=== PATIENT | male | born 2000 | race Caucasian/White ===

== ENCOUNTER 2022-06-14 00:19 | Inpatient (IN) | payer OTHER ==
[~2022-06-14] VITALS: Ht 188 cm; Wt 131.6 kg
[2022-06-14] VITALS (21 sets, daily range): BP systolic 109–154; BP diastolic 56–125
[2022-06-14] MEDS ORDERED: ACETAMINOPHEN 325MG TABLET PO STA (00:46)
[2022-06-14] MEDS ORDERED: SODIUM CHLORIDE 0.9% 1,000 ML IV ONE ×2 (01:00)
[2022-06-14] MEDS ORDERED: IBUPROFEN 400MG TABLET PO ONE (01:00)
[2022-06-14] MEDS ORDERED: CEFTRIAXONE 1 G PREMIX 50 ML IV ONE (01:00)
[2022-06-14] MEDS ORDERED: VANCOMYCIN 1G PREMIX 200 ML IV ONE (01:00)
[2022-06-14 01:30] LABS: CHLORIDE 87 mEq/L (98-107)
[2022-06-14 01:37] LABS: HEMATOCRIT. 44.5 % (42.0-52.0); HEMOGLOBIN. 15.5 g/dL (14.0-18.0); MEAN CORPUSCULAR HEMOGLOBIN 28.6 pg (28.0-32.0); MEAN CORPUSCULAR VOLUME 82.1 fL (80.0-94.0); MEAN PLATELET VOLUME 8.8 fl (7.4-10.4); PLATELET 258 x1000/uL (130-400); RED BLOOD CELL COUNT 5.42 mill/uL (4.7-6.1); RED CELL DISTRIBUTION WIDTH 13.2 % (11.6-14.6)
[2022-06-14 01:56] LABS: INR 1.9; PROTHROMBIN TIME 19.8 sec (9.6-11.0)
[2022-06-14] MEDS ORDERED: DANTROLENE SODIUM 25MG CAPSULE PO NR (02:30)
[2022-06-14] MEDS ORDERED: DEXT 5% WATER + KCL 40MEQ/L 1,000 ML IV NR (02:30)
[2022-06-14] MEDS: POTASSIUM CHLORIDE INJ 40 MEQ in DEXTROSE 5% WATER 1,000 ML IV NR ×2 (02:45→14:52)
[2022-06-14] MEDS ORDERED: SODIUM CHLORIDE 0.9% 1,000 ML IV NR (02:45)
[2022-06-14 03:19] LABS: CREATINE KINASE 343 IU/L (39-308)
[2022-06-14 05:34] LABS: CLARITY URINE CLOUDY (CLEAR); COLOR URINE DARK YELLOW (YELLOW); KETONES URINE 1+ (NEGATIVE); LEUKOCYTE ESTERASE URINE TRACE (NEGATIVE); NITRITE URINE NEGATIVE (NEGATIVE); OCCULT BLOOD URINE 3+ (NEGATIVE); PH URINE 5.5 (4.5-8.0); PROTEIN URINE 3+ (NEGATIVE); SPECIFIC GRAVITY URINE 1.027 (1.005-1.030)
[2022-06-14 05:48] LABS: *AMPHETAMINES SCREEN URINE NEGATIVE (NEGATIVE); *BARBITURATES SCREEN URINE NEGATIVE (NEGATIVE); *BENZODIAZEPINES SCREEN URINE NEGATIVE (NEGATIVE); *COCAINE SCREEN URINE NEGATIVE (NEGATIVE); CANNABINOID URINE SCREEN NEGATIVE (NEGATIVE); METHADONE URINE SCREEN NEGATIVE (NEGATIVE); OPIATES URINE SCREEN NEGATIVE (NEGATIVE); PHENCYCLIDINE URINE SCREEN NEGATIVE (NEGATIVE)
[2022-06-14] MEDS ORDERED: ACETAMINOPHEN 325MG TABLET PO PRN (06:15)
[2022-06-14] MEDS ORDERED: PIPERACILLIN/TAZ 3.375G PREMIX 50 ML IV SCH (06:15)
[2022-06-14] MEDS ORDERED: LORAZEPAM 2MG/ML CPJ IV PRN ×2 (06:15→21:30)
[2022-06-14] MEDS ORDERED: CLONIDINE 0.1MG TABLET PO PRN (06:15)
[2022-06-14 07:06] LABS: PLATELET ESTIMATE NORMAL
[2022-06-14 07:12] LABS: BG BASE EXCESS -3.2 mmol/L (-2.0-2.0); BG CARBOXYHEMOGLOBIN 0.5 % (0.5-1.5); BG DEOXYHEMOGLOBIN 5.1 % (0.0-5.0); BG FRACTION INSPIRED OXYGEN 21; BG HCO3 ACT 20.2 mmol/L (22.0-26.0); BG METHEMOGLOBIN 0.4 % (0.0-1.5); BG OXYGEN SATURATION 94.9 % (92.0-98.5); BG PH 7.418 (7.350-7.450); BG PO2 71.1 mmHg (75.0-100.0); BG SAMPLE SITE RIGHT RADIAL; BG VENT MODE ROOM AIR
[2022-06-14] MEDS ORDERED: VANCOMYCIN 1G PREMIX 200 ML IV SCH (09:15)
[2022-06-14] MEDS ORDERED: VANCOMYCIN 1.25GM PMX (XELLIA) 250 ML IV SCH (10:00)
[2022-06-14] MEDS ORDERED: FOLIC ACID 1 MG, THIAMINE HCL 100 MG, MVI, ADULT NO.1 10 ML in DEXT 5%/0.9% NACL 1,000 ML IV SCH ×4 (10:00)
[2022-06-14] MEDS ORDERED: LACTATED RINGERS 1,000 ML IV SCH (11:14)
[2022-06-14] MEDS: ENOXAPARIN 40MG/0.4ML SYR SUBCUT SCH (11:49)
[2022-06-14] MEDS: ACETAMINOPHEN 325MG TABLET PO PRN (11:50)
[2022-06-14] MEDS: ACETAMINOPHEN 650MG SUPP PR PRN ×2 (12:25→20:45)
[2022-06-14] MEDS ORDERED: IPRATROPIUM/ALBUTEROL 0.5-3(2.5)MG/3ML NEB HHN PRN ×2 (13:00→15:15)
[2022-06-14 13:03] LABS: T4 FREE 1.28 ng/dL (0.76-1.46)
[2022-06-14] MEDS ORDERED: ALBUTEROL (0.083%) 2.5MG/3ML NEB HHN PRN (13:15)
[2022-06-14] MEDS ORDERED: IPRATROPIUM BROMIDE (0.02%) 0.5MG/2.5ML NEB HHN PRN (13:15)
[2022-06-14 13:50] LABS: BG CARBOXYHEMOGLOBIN 0.6 % (0.5-1.5); BG DEOXYHEMOGLOBIN 1.6 % (0.0-5.0); BG FRACTION INSPIRED OXYGEN 36; BG HCO3 ACT 20.2 mmol/L (22.0-26.0); BG METHEMOGLOBIN 0.4 % (0.0-1.5); BG OXYGEN SATURATION 98.4 % (92.0-98.5); BG OXYHEMOGLOBIN 97.4 % (94.0-97.0); BG PCO2 31.4 mmHg (35.0-45.0); BG PH 7.427 (7.350-7.450); BG PO2 113.4 mmHg (75.0-100.0); BG SAMPLE SITE LEFT BRACHIAL; BG TOTAL HEMOGLOBIN 14.5 g/dL (12.0-18.0); BG VENT MODE NASAL CANNULA
[2022-06-14] MEDS: PIPERACILLIN/TAZOBACTAM 3.375 G in DEXTROSE 5% WATER 50 ML IV SCH ×2 (14:54→22:56)
[2022-06-14] MEDS ORDERED: LACTATED RINGERS 1,000 ML IV ONE (15:30)
[2022-06-14] MEDS ORDERED: IPRATROPIUM/ALBUTEROL 0.5-3(2.5)MG/3ML NEB HHN SCH ×2 (16:00)
[2022-06-14] MEDS ORDERED: IPRATROPIUM BROMIDE (0.02%) 0.5MG/2.5ML NEB HHN SCH (16:00)
[2022-06-14] MEDS ORDERED: ALBUTEROL (0.083%) 2.5MG/3ML NEB HHN SCH (16:00)
[2022-06-14 18:49] LABS: MEAN CORPUSCULAR HEMOGLOBIN 28.4 pg (28.0-32.0); MEAN CORPUSCULAR VOLUME 83.4 fL (80.0-94.0); MEAN PLATELET VOLUME 9.6 fl (7.4-10.4); PLATELET 178 x1000/uL (130-400); RED BLOOD CELL COUNT 4.92 mill/uL (4.7-6.1); RED CELL DISTRIBUTION WIDTH 13.2 % (11.6-14.6)
[2022-06-14 18:53] LABS: CHLORIDE 95 mEq/L (98-107)
[2022-06-14 19:04] LABS: CREATINE KINASE 548 IU/L (39-308); PHOSPHORUS 2.2 mg/dL (2.5-4.9)
[2022-06-14] MEDS: AZITHROMYCIN 500MG in DEXTROSE 5% WATER 250ML IV SCH (20:45)
[2022-06-14] MEDS: FAMOTIDINE 20MG TABLET PO SCH (21:00)
[2022-06-14] MEDS ORDERED: MAGNESIUM 4 G PREMIX 100 ML IV NR (21:30)
[2022-06-14] MEDS: VANCOMYCIN 1.25GM PMX (XELLIA) 250 ML IV SCH (22:30)
[2022-06-14] MEDS: IPRATROPIUM/ALBUTEROL 0.5-3(2.5)MG/3ML NEB HHN SCH (23:05)
[2022-06-14 23:36] LABS: BG BASE EXCESS -1.5 mmol/L (-2.0-2.0); BG FRACTION INSPIRED OXYGEN 32; BG METHEMOGLOBIN 0.5 % (0.0-1.5); BG OXYHEMOGLOBIN 97.5 % (94.0-97.0); BG PCO2 29.6 mmHg (35.0-45.0); BG PH 7.469 (7.350-7.450); BG PO2 98.8 mmHg (75.0-100.0); BG SAMPLE SITE RIGHT RADIAL; BG TOTAL HEMOGLOBIN 14.4 g/dL (12.0-18.0); BG VENT MODE NASAL CANNULA
[2022-06-14 23:38] LABS: PLATELET ESTIMATE NORMAL
[2022-06-15] VITALS (37 sets, daily range): BP systolic 61–147; BP diastolic 33–99
[2022-06-15] MEDS: ACETAMINOPHEN 650MG SUPP PR PRN ×3 (02:34→16:34)
[2022-06-15] MEDS: IPRATROPIUM/ALBUTEROL 0.5-3(2.5)MG/3ML NEB HHN SCH ×6 (04:05→23:40)
[2022-06-15] MEDS: PIPERACILLIN/TAZOBACTAM 3.375 G in DEXTROSE 5% WATER 50 ML IV SCH ×3 (06:03→23:01)
[2022-06-15 06:19] LABS: HEMATOCRIT. 39.1 % (42.0-52.0); HEMOGLOBIN. 13.4 g/dL (14.0-18.0); MEAN CORPUSCULAR HEMOGLOBIN 28.7 pg (28.0-32.0); MEAN CORPUSCULAR VOLUME 83.5 fL (80.0-94.0); MEAN PLATELET VOLUME 9.5 fl (7.4-10.4); PLATELET 145 x1000/uL (130-400); RED BLOOD CELL COUNT 4.68 mill/uL (4.7-6.1); RED CELL DISTRIBUTION WIDTH 13.4 % (11.6-14.6)
[2022-06-15 06:25] LABS: CHLORIDE 93 mEq/L (98-107)
[2022-06-15 06:33] LABS: CREATINE KINASE 499 IU/L (39-308)
[2022-06-15 08:00] LABS: HEPATITIS B SURFACE ANTIGEN NEGATIVE
[2022-06-15] MEDS ORDERED: AZITHROMYCIN 500MG/250ML 250 ML IV SCH (09:00)
[2022-06-15] MEDS: ENOXAPARIN 40MG/0.4ML SYR SUBCUT SCH (09:00)
[2022-06-15] MEDS: DEXT 5%/LACTATED RINGERS 1,000 ML IV SCH ×3 (09:40→23:02)
[2022-06-15] MEDS: VANCOMYCIN 1.25GM PMX (XELLIA) 250 ML IV SCH (09:40)
[2022-06-15] MEDS ORDERED: LIDOCAINE HCL 1% 10 MG/ML 10ML VIAL ONE (09:44)
[2022-06-15] MEDS ORDERED: MIDAZOLAM HCL 5 MG/5 ML VIAL IV NR (09:45)
[2022-06-15 09:54] LABS: PLATELET ESTIMATE NORMAL
[2022-06-15 10:35] LABS: SODIUM URINE RANDOM < 5 mEq/L
[2022-06-15] MEDS ORDERED: KCL 20MEQ/100ML X 2 FOR TOTAL KCL 40MEQ/200ML IV SCH (11:30)
[2022-06-15] MEDS ORDERED: POTASSIUM CHLORIDE INJ 40 MEQ in DEXT 5% WATER 250 ML IV ONE (11:30)
[2022-06-15] MEDS ORDERED: THIAMINE HCL 100MG TABLET NG SCH (11:45)
[2022-06-15] MEDS: FOLIC ACID 1MG TABLET PO SCH (14:22)
[2022-06-15] MEDS: ACETAMINOPHEN 325MG TABLET PO PRN (14:23)
[2022-06-15] MEDS: LORAZEPAM 2MG/ML CPJ IV SCH ×3 (14:24→23:01)
[2022-06-15] MEDS: AZITHROMYCIN 500MG in DEXTROSE 5% WATER 250ML IV SCH (16:37)
[2022-06-15] MEDS: VANCOMYCIN 1G PREMIX 200 ML IV SCH (17:53)
[2022-06-15] MEDS ORDERED: LORAZEPAM 2MG/ML CPJ IV NR (19:30)
[2022-06-15] MEDS: FAMOTIDINE 20MG TABLET PO SCH (21:41)
[2022-06-15] MEDS: THIAMINE HCL 500 MG in SODIUM CHLORIDE 0.9% 95 ML IV SCH (21:41)
[2022-06-16] VITALS (45 sets, daily range): BP systolic 81–157; BP diastolic 46–97
[2022-06-16] MEDS: ACETAMINOPHEN 325MG TABLET PO PRN (00:10)
[2022-06-16] MEDS: VANCOMYCIN 1G PREMIX 200 ML IV SCH (02:23)
[2022-06-16] MEDS: LORAZEPAM 2MG/ML CPJ IV SCH ×3 (02:24→11:28)
[2022-06-16] MEDS: IPRATROPIUM/ALBUTEROL 0.5-3(2.5)MG/3ML NEB HHN SCH ×5 (03:56→20:24)
[2022-06-16] MEDS: ACETAMINOPHEN 650MG SUPP PR PRN (05:04)
[2022-06-16] MEDS: PIPERACILLIN/TAZOBACTAM 3.375 G in DEXTROSE 5% WATER 50 ML IV SCH (05:54)
[2022-06-16 07:22] LABS: HEMATOCRIT. 40.8 % (42.0-52.0); HEMOGLOBIN. 13.6 g/dL (14.0-18.0); MEAN CORPUSCULAR HEMOGLOBIN 28.2 pg (28.0-32.0); MEAN CORPUSCULAR VOLUME 84.5 fL (80.0-94.0); MEAN PLATELET VOLUME 9.3 fl (7.4-10.4); PLATELET 59 x1000/uL (130-400); RED BLOOD CELL COUNT 4.83 mill/uL (4.7-6.1)
[2022-06-16] MEDS ORDERED: ENOXAPARIN 30MG/0.3ML SYR SUBCUT SCH (09:00)
[2022-06-16] MEDS ORDERED: POTASSIUM CHLORIDE 20MEQ TABLET SR PO NR (10:00)
[2022-06-16] MEDS ORDERED: PHYTONADIONE 10MG/ML AMP SUBCUT NR (10:30)
[2022-06-16 10:58] LABS: D-DIMER 6.41 mg/L FEU (<0.50); INR 1.3; PROTHROMBIN TIME 14.2 sec (9.6-11.0)
[2022-06-16 11:04] LABS: FIBRINOGEN > 900 mg/dL (200-400)
[2022-06-16] MEDS: FOLIC ACID 1MG TABLET PO SCH (11:28)
[2022-06-16] MEDS: THIAMINE HCL 500 MG in SODIUM CHLORIDE 0.9% 95 ML IV SCH ×3 (11:31→17:03)
[2022-06-16] MEDS: DEXT 5%/LACTATED RINGERS 1,000 ML IV SCH ×2 (11:31→17:02)
[2022-06-16] MEDS ORDERED: LORAZEPAM 2MG/ML CPJ IV PRN (13:00)
[2022-06-16 13:03] LABS: PLATELET ESTIMATE DECREASED
[2022-06-16] MEDS: ACYCLOVIR INJ 500 MG in DEXT 5% WATER 100 ML IV SCH ×2 (15:18→21:58)
[2022-06-16] MEDS: CEFEPIME 2,000 MG in DEXT 5% WATER 100 ML IV SCH (15:56)
[2022-06-16] MEDS: METRONIDAZOLE 250MG TABLET PO SCH ×2 (15:56→21:58)
[2022-06-16] MEDS: DOXYCYCLINE 100 MG in DEXT 5% WATER 100 ML IV SCH (15:56)
[2022-06-16] MEDS: HYDROCORTISONE SOD SUCCINATE 100 MG/2 ML VIAL IV SCH (21:58)
[2022-06-16] MEDS: FAMOTIDINE 20MG TABLET PO SCH (21:58)
[2022-06-16] MEDS ORDERED: LEVETIRACETAM 1,000 MG in SODIUM CHLORIDE 0.9% 100 ML IV NR (22:30)
[2022-06-16 23:34] LABS: CREATINE KINASE 1888 IU/L (39-308)
[2022-06-17] VITALS (62 sets, daily range): BP systolic 82–184; BP diastolic 38–117
[2022-06-17] MEDS: IPRATROPIUM/ALBUTEROL 0.5-3(2.5)MG/3ML NEB HHN SCH ×4 (00:25→21:12)
[2022-06-17] MEDS: LORAZEPAM 2MG/ML CPJ IV SCH ×6 (00:57→20:00)
[2022-06-17] MEDS: DEXT 5%/LACTATED RINGERS 1,000 ML IV SCH ×3 (00:57→22:48)
[2022-06-17] MEDS: HYDROCORTISONE SOD SUCCINATE 100 MG/2 ML VIAL IV SCH ×2 (05:21→15:11)
[2022-06-17] MEDS: METRONIDAZOLE 250MG TABLET PO SCH ×2 (05:21→15:12)
[2022-06-17] MEDS: DOXYCYCLINE 100 MG in DEXT 5% WATER 100 ML IV SCH ×2 (05:21→19:10)
[2022-06-17] MEDS: ACYCLOVIR INJ 500 MG in DEXT 5% WATER 100 ML IV SCH ×2 (05:21→15:11)
[2022-06-17 05:40] LABS: HEMATOCRIT. 37.9 % (42.0-52.0); HEMOGLOBIN. 12.5 g/dL (14.0-18.0); MEAN CORPUSCULAR HEMOGLOBIN 27.9 pg (28.0-32.0); MEAN CORPUSCULAR VOLUME 84.8 fL (80.0-94.0); MEAN PLATELET VOLUME 10.8 fl (7.4-10.4); RED BLOOD CELL COUNT 4.47 mill/uL (4.7-6.1); RED CELL DISTRIBUTION WIDTH 14.4 % (11.6-14.6)
[2022-06-17 05:56] LABS: PLATELET 33 x1000/uL (130-400)
[2022-06-17] MEDS: KCL 20MEQ/100ML PREMIX 100 ML IV NR ×2 (06:37→09:16)
[2022-06-17] MEDS: FOLIC ACID 1MG TABLET PO SCH (09:15)
[2022-06-17] MEDS: THIAMINE HCL 500 MG in SODIUM CHLORIDE 0.9% 95 ML IV SCH ×3 (09:15→19:09)
[2022-06-17] MEDS ORDERED: SODIUM BICARBONATE 8.4% 1 MEQ/ML 50ML SYR IV ONE (09:19)
[2022-06-17] MEDS ORDERED: EPINEPHRINE 0.1MG/ML (1:10,000) 10ML SYR ONE (09:19)
[2022-06-17] MEDS ORDERED: CALCIUM CHLORIDE 1GM/10ML SYR IV ONE (09:19)
[2022-06-17 09:37] LABS: PLATELET ESTIMATE MARKEDLY DECREASED
[2022-06-17 12:44] LABS: BG BASE EXCESS -7.2 mmol/L (-2.0-2.0); BG CARBOXYHEMOGLOBIN 0.2 % (0.5-1.5); BG DEOXYHEMOGLOBIN 3.9 % (0.0-5.0); BG FRACTION INSPIRED OXYGEN 32; BG HCO3 ACT 18.2 mmol/L (22.0-26.0); BG METHEMOGLOBIN 1.7 % (0.0-1.5); BG OXYHEMOGLOBIN 94.2 % (94.0-97.0); BG PCO2 36.7 mmHg (35.0-45.0); BG PH 7.314 (7.350-7.450); BG PO2 89.8 mmHg (75.0-100.0); BG SAMPLE SITE RIGHT RADIAL; BG TOTAL HEMOGLOBIN 13.8 g/dL (12.0-18.0); BG VENT MODE NASAL CANNULA
[2022-06-17] MEDS ORDERED: METOPROLOL TARTRATE 5MG/5ML VIAL IV NR (13:15)
[2022-06-17] MEDS ORDERED: METOPROLOL TARTRATE 25MG TABLET PO SCH (13:20)
[2022-06-17] MEDS ORDERED: LIDOCAINE HCL 1% 10 MG/ML 10ML VIAL ONE (13:22)
[2022-06-17] MEDS ORDERED: HEPARIN 1000 UNITS/ML 10ML ONE (13:23)
[2022-06-17 13:25] LABS: INR 1.1; PROTHROMBIN TIME 12.2 sec (9.6-11.0)
[2022-06-17] MEDS ORDERED: PHENYLEPHRINE 50 MG in DEXT 5% WATER 245 ML IV PRN (13:45)
[2022-06-17 14:43] LABS: VITAMIN B12 SERUM > 2000.0 pg/mL (211-911)
[2022-06-17] MEDS ORDERED: METOPROLOL TARTRATE 5MG/5ML VIAL IV PRN (14:45)
[2022-06-17] MEDS: MIDODRINE HCL 5MG TABLET PO SCH ×2 (15:12→22:00)
[2022-06-17 15:54] LABS: GLUCOSE CSF 110 mg/dL (41-75)
[2022-06-17 16:28] LABS: BG BASE EXCESS -14.9 mmol/L (-2.0-2.0); BG CARBOXYHEMOGLOBIN 0.1 % (0.5-1.5); BG DEOXYHEMOGLOBIN 6.1 % (0.0-5.0); BG FRACTION INSPIRED OXYGEN 100; BG HCO3 ACT 16.5 mmol/L (22.0-26.0); BG METHEMOGLOBIN 0.4 % (0.0-1.5); BG OXYGEN SATURATION 93.9 % (92.0-98.5); BG OXYHEMOGLOBIN 93.4 % (94.0-97.0); BG PCO2 63.9 mmHg (35.0-45.0); BG PH 7.029 (7.350-7.450); BG PO2 90.9 mmHg (75.0-100.0); BG SAMPLE SITE RIGHT RADIAL; BG TOTAL HEMOGLOBIN 13.6 g/dL (12.0-18.0); BG VENT MODE VENT - AC
[2022-06-17 17:07] LABS: HEMATOCRIT. 37.8 % (42.0-52.0); HEMOGLOBIN. 12.3 g/dL (14.0-18.0); MEAN CORPUSCULAR HEMOGLOBIN 27.9 pg (28.0-32.0); MEAN CORPUSCULAR VOLUME 85.8 fL (80.0-94.0); MEAN PLATELET VOLUME 8.3 fl (7.4-10.4); PLATELET 56 x1000/uL (130-400); RED CELL DISTRIBUTION WIDTH 14.7 % (11.6-14.6)
[2022-06-17] MEDS: CEFEPIME 2,000 MG in DEXT 5% WATER 100 ML IV SCH (17:11)
[2022-06-17 17:15] LABS: CHLORIDE 96 mEq/L (98-107)
[2022-06-17] MEDS ORDERED: MEPERIDINE HCL/PF 25MG/ML CPJ IV PRN (18:45)
[2022-06-17] MEDS ORDERED: BUSPIRONE HCL 10MG TABLET NG PRN (18:45)
[2022-06-17 18:50] LABS: PHOSPHORUS 9.7 mg/dL (2.5-4.9)
[2022-06-17] MEDS: FENTANYL 2500MCG/250ML PMX 250 ML IV PRN (19:38)
[2022-06-17] MEDS: PROPOFOL 10MG/ML 100ML 100 ML IV PRN ×2 (19:42→23:26)
[2022-06-17] MEDS: PHENYLEPHRINE 100 MG in DEXT 5% WATER 240 ML IV PRN (19:43)
[2022-06-17 20:57] LABS: PLATELET ESTIMATE DECREASED
[2022-06-17] MEDS: BLOOD SUGAR DIAGNOSTIC STRIP TEST SCH (21:00)
[2022-06-17 21:06] LABS: BG BASE EXCESS -7.4 mmol/L (-2.0-2.0); BG CARBOXYHEMOGLOBIN 0.1 % (0.5-1.5); BG DEOXYHEMOGLOBIN 5.8 % (0.0-5.0); BG FRACTION INSPIRED OXYGEN 100; BG HCO3 ACT 20.9 mmol/L (22.0-26.0); BG METHEMOGLOBIN 0.4 % (0.0-1.5); BG OXYGEN SATURATION 94.2 % (92.0-98.5); BG OXYHEMOGLOBIN 93.7 % (94.0-97.0); BG PCO2 53.5 mmHg (35.0-45.0); BG PH 7.209 (7.350-7.450); BG PO2 78.7 mmHg (75.0-100.0); BG SAMPLE SITE RIGHT RADIAL; BG TOTAL HEMOGLOBIN 13.6 g/dL (12.0-18.0); BG TOTAL RESPIRATORY RATE 35 b/min; BG VENT MODE VENT - AC
[2022-06-17 21:46] LABS: INR 1.2; PARTIAL THROMBOPLASTIN TIME 27.9 sec (23.4-31.0); PROTHROMBIN TIME 12.4 sec (9.6-11.0)
[2022-06-18] VITALS (87 sets, daily range): BP systolic 92–141; BP diastolic 41–78
[2022-06-18] MEDS: IPRATROPIUM/ALBUTEROL 0.5-3(2.5)MG/3ML NEB HHN SCH ×6 (00:25→20:17)
[2022-06-18] MEDS ORDERED: INSULIN REGULAR (DRIP) 100 UNITS in SODIUM CHLORIDE 0.9% 99 ML IV PRN (00:45)
[2022-06-18] MEDS: HYDROCORTISONE SOD SUCCINATE 100 MG/2 ML VIAL IV SCH ×3 (00:57→13:37)
[2022-06-18] MEDS: FAMOTIDINE 20MG/2ML VIAL IV SCH ×2 (00:57→13:37)
[2022-06-18 00:58] LABS: HEMATOCRIT. 38.7 % (42.0-52.0); HEMOGLOBIN. 12.8 g/dL (14.0-18.0); MEAN CORPUSCULAR HEMOGLOBIN 27.8 pg (28.0-32.0); MEAN CORPUSCULAR VOLUME 84.1 fL (80.0-94.0)
[2022-06-18] MEDS ORDERED: INSULIN REGULAR 100U/100ML PMX 100 ML IV SCH (01:00)
[2022-06-18 01:14] LABS: PLATELET 33 x1000/uL (130-400)
[2022-06-18 01:17] LABS: CHLORIDE 97 mEq/L (98-107)
[2022-06-18] MEDS: BLOOD SUGAR DIAGNOSTIC STRIP TEST SCH ×20 (01:18→23:00)
[2022-06-18] MEDS: INSULIN REGULAR 100U/100ML PMX 100 ML IV PRN ×3 (01:27→21:15)
[2022-06-18 01:37] LABS: CREATINE KINASE 2571 IU/L (39-308); PHOSPHORUS 4.9 mg/dL (2.5-4.9)
[2022-06-18] MEDS ORDERED: KCL 10MEQ/50ML PREMIX 50 ML IV ONE (01:45)
[2022-06-18] MEDS: KCL 20MEQ/100ML X 3 FOR TOTAL KCL 60MEQ/300ML IV NR ×3 (02:25→06:15)
[2022-06-18] MEDS: PROPOFOL 10MG/ML 100ML 100 ML IV PRN ×3 (02:49→08:53)
[2022-06-18] MEDS ORDERED: METRONIDAZOLE 500 MG PREMIX 250 MG in BAG 0 EACH IV SCH ×2 (03:30→08:00)
[2022-06-18] MEDS: LORAZEPAM 2MG/ML CPJ IV SCH ×7 (04:00→23:08)
[2022-06-18] MEDS: MIDODRINE HCL 5MG TABLET PO SCH ×3 (06:00→21:11)
[2022-06-18] MEDS: DEXT 5%/LACTATED RINGERS 1,000 ML IV SCH ×3 (06:15→15:40)
[2022-06-18] MEDS: DOXYCYCLINE 100 MG in DEXT 5% WATER 100 ML IV SCH ×2 (06:18→18:57)
[2022-06-18 06:29] LABS: HEMATOCRIT. 37.7 % (42.0-52.0); HEMOGLOBIN. 12.5 g/dL (14.0-18.0); MEAN CORPUSCULAR HEMOGLOBIN 27.7 pg (28.0-32.0); MEAN PLATELET VOLUME 10.4 fl (7.4-10.4); RED CELL DISTRIBUTION WIDTH 14.7 % (11.6-14.6)
[2022-06-18 06:51] LABS: PLATELET 25 x1000/uL (130-400)
[2022-06-18 07:11] LABS: HIV SCREEN 4G Non Reactive (Non Reactive)
[2022-06-18 07:33] LABS: BG BASE EXCESS -6.7 mmol/L (-2.0-2.0); BG CARBOXYHEMOGLOBIN 0.3 % (0.5-1.5); BG DEOXYHEMOGLOBIN 1.1 % (0.0-5.0); BG FRACTION INSPIRED OXYGEN 100; BG HCO3 ACT 18.4 mmol/L (22.0-26.0); BG METHEMOGLOBIN 0.3 % (0.0-1.5); BG OXYGEN SATURATION 98.9 % (92.0-98.5); BG OXYHEMOGLOBIN 98.3 % (94.0-97.0); BG PCO2 35.7 mmHg (35.0-45.0); BG PH 7.331 (7.350-7.450); BG PO2 181.8 mmHg (75.0-100.0); BG SAMPLE SITE RIGHT RADIAL; BG TOTAL HEMOGLOBIN 13.3 g/dL (12.0-18.0); BG VENT MODE VENT - AC/VC
[2022-06-18 07:33] LABS: PHOSPHORUS 3.5 mg/dL (2.5-4.9)
[2022-06-18 07:47] LABS: INR 1.2; PARTIAL THROMBOPLASTIN TIME 29.8 sec (23.4-31.0); PROTHROMBIN TIME 12.7 sec (9.6-11.0)
[2022-06-18] MEDS ORDERED: DEXT 10% IV ONE (08:45)
[2022-06-18] MEDS ORDERED: WATER IV ONE (08:45)
[2022-06-18] MEDS ORDERED: POTASSIUM CHLORIDE IV ONE (08:45)
[2022-06-18] MEDS: FOLIC ACID 1MG TABLET PO SCH (09:00)
[2022-06-18] MEDS ORDERED: ASPIRIN 81MG TABLET PO SCH (09:00)
[2022-06-18 09:27] LABS: PLATELET ESTIMATE MARKEDLY DECREASED
[2022-06-18] MEDS ORDERED: MIDAZOLAM HCL 100 MG in SODIUM CHLORIDE 0.9% 80 ML IV PRN (09:45)
[2022-06-18] MEDS: THIAMINE HCL 500 MG in SODIUM CHLORIDE 0.9% 95 ML IV SCH ×3 (09:46→17:30)
[2022-06-18] MEDS: ACYCLOVIR INJ 500 MG in DEXT 5% WATER 100 ML IV SCH (09:46)
[2022-06-18 10:04] LABS: NUCLEATED RED BLOOD CELLS 1 /100 WBC
[2022-06-18 10:05] LABS: PLATELET ESTIMATE MARKEDLY DECREASED
[2022-06-18] MEDS: PHENYLEPHRINE 100 MG in DEXT 5% WATER 240 ML IV PRN (10:29)
[2022-06-18] MEDS ORDERED: POTASSIUM CHLORIDE INJ 60 MEQ in DEXT 5% WATER 500 ML IV SCH (11:00)
[2022-06-18] MEDS ORDERED: MIDAZOLAM 100MG/100ML PMX 100 ML IV PRN (11:00)
[2022-06-18 13:18] LABS: PHOSPHORUS 3.2 mg/dL (2.5-4.9)
[2022-06-18] MEDS: METRONIDAZOLE 500 MG PREMIX 100 ML IV SCH ×2 (13:37→21:11)
[2022-06-18] MEDS: MIDAZOLAM HCL 100 MG in SODIUM CHLORIDE 0.9% 100 ML IV PRN (15:30)
[2022-06-18 15:42] LABS: HEMATOCRIT. 38.7 % (42.0-52.0); HEMOGLOBIN. 12.9 g/dL (14.0-18.0); MEAN CORPUSCULAR HEMOGLOBIN 27.9 pg (28.0-32.0); MEAN CORPUSCULAR VOLUME 83.8 fL (80.0-94.0); MEAN PLATELET VOLUME 9.8 fl (7.4-10.4); RED BLOOD CELL COUNT 4.62 mill/uL (4.7-6.1); RED CELL DISTRIBUTION WIDTH 14.7 % (11.6-14.6)
[2022-06-18] MEDS: FENTANYL 2500MCG/250ML PMX 250 ML IV PRN (15:59)
[2022-06-18 16:13] LABS: PLATELET 19 x1000/uL (130-400)
[2022-06-18] MEDS: CEFEPIME 2,000 MG in DEXT 5% WATER 100 ML IV SCH (17:29)
[2022-06-18 18:28] LABS: INR 1.2; PROTHROMBIN TIME 12.4 sec (9.6-11.0)
[2022-06-18 18:30] LABS: PHOSPHORUS 3.9 mg/dL (2.5-4.9)
[2022-06-18 20:54] LABS: PLATELET ESTIMATE MARKEDLY DECREASED
[2022-06-18] MEDS: METHYLPREDNISOLONE SOD SUCC 40 MG/ML VIAL IV SCH (21:11)
[2022-06-18 21:45] LABS: BG BASE EXCESS -9.6 mmol/L (-2.0-2.0); BG CARBOXYHEMOGLOBIN 0.1 % (0.5-1.5); BG DEOXYHEMOGLOBIN 2.8 % (0.0-5.0); BG FRACTION INSPIRED OXYGEN 60; BG HCO3 ACT 15.6 mmol/L (22.0-26.0); BG METHEMOGLOBIN 0.4 % (0.0-1.5); BG OXYGEN SATURATION 97.2 % (92.0-98.5); BG OXYHEMOGLOBIN 96.7 % (94.0-97.0); BG PCO2 32.6 mmHg (35.0-45.0); BG PH 7.298 (7.350-7.450); BG PO2 100.2 mmHg (75.0-100.0); BG SAMPLE SITE RIGHT RADIAL; BG TOTAL HEMOGLOBIN 14.4 g/dL (12.0-18.0); BG VENT MODE VENT - AC
[2022-06-18] MEDS ORDERED: KCL 20MEQ/100ML PREMIX 100 ML IV NR (21:45)
[2022-06-18] MEDS ORDERED: SODIUM BICARBONATE 8.4% 1 MEQ/ML 50ML SYR IV NR (22:00)
[2022-06-19] VITALS (101 sets, daily range): BP systolic 85–113; BP diastolic 42–69
[2022-06-19] MEDS ORDERED: POTASSIUM CHLORIDE INJ 40 MEQ in DEXT 5% WATER 250 ML IV NR ×2
[2022-06-19 00:13] LABS: HEMATOCRIT. 40.1 % (42.0-52.0); HEMOGLOBIN. 13.2 g/dL (14.0-18.0); MEAN CORPUSCULAR HEMOGLOBIN 27.6 pg (28.0-32.0); MEAN PLATELET VOLUME 10.2 fl (7.4-10.4); RED BLOOD CELL COUNT 4.77 mill/uL (4.7-6.1); RED CELL DISTRIBUTION WIDTH 14.6 % (11.6-14.6)
[2022-06-19 00:25] LABS: PLATELET 13 x1000/uL (130-400)
[2022-06-19] MEDS: IPRATROPIUM/ALBUTEROL 0.5-3(2.5)MG/3ML NEB HHN SCH ×5 (00:28→16:25)
[2022-06-19 00:29] LABS: PHOSPHORUS 4.9 mg/dL (2.5-4.9)
[2022-06-19 00:57] LABS: PLATELET ESTIMATE DECREASED
[2022-06-19] MEDS: BLOOD SUGAR DIAGNOSTIC STRIP TEST SCH ×24 (01:00→23:00)
[2022-06-19] MEDS: DEXT 5%/LACTATED RINGERS 1,000 ML IV SCH ×3 (01:00→16:17)
[2022-06-19 01:52] LABS: INR 1.2; PARTIAL THROMBOPLASTIN TIME 30.2 sec (23.4-31.0); PROTHROMBIN TIME 12.5 sec (9.6-11.0)
[2022-06-19] MEDS: LORAZEPAM 2MG/ML CPJ IV SCH ×6 (04:00→23:29)
[2022-06-19] MEDS: DOXYCYCLINE 100 MG in DEXT 5% WATER 100 ML IV SCH ×2 (05:05→17:40)
[2022-06-19] MEDS: METHYLPREDNISOLONE SOD SUCC 40 MG/ML VIAL IV SCH ×3 (05:05→21:36)
[2022-06-19] MEDS: MIDODRINE HCL 5MG TABLET PO SCH ×3 (05:05→21:37)
[2022-06-19 06:43] LABS: HEMATOCRIT. 40.3 % (42.0-52.0); HEMOGLOBIN. 13.2 g/dL (14.0-18.0); MEAN CORPUSCULAR HEMOGLOBIN 27.8 pg (28.0-32.0); MEAN PLATELET VOLUME 10.6 fl (7.4-10.4); RED BLOOD CELL COUNT 4.74 mill/uL (4.7-6.1); RED CELL DISTRIBUTION WIDTH 14.8 % (11.6-14.6)
[2022-06-19 06:46] LABS: PLATELET 14 x1000/uL (130-400)
[2022-06-19] MEDS: INSULIN REGULAR 100U/100ML PMX 100 ML IV PRN ×2 (06:46→19:09)
[2022-06-19 06:49] LABS: INR 1.2; PARTIAL THROMBOPLASTIN TIME 30.5 sec (23.4-31.0); PROTHROMBIN TIME 12.3 sec (9.6-11.0)
[2022-06-19 07:33] LABS: BG BASE EXCESS -10.8 mmol/L (-2.0-2.0); BG CARBOXYHEMOGLOBIN 0.3 % (0.5-1.5); BG DEOXYHEMOGLOBIN 5.6 % (0.0-5.0); BG FRACTION INSPIRED OXYGEN 40; BG HCO3 ACT 14.2 mmol/L (22.0-26.0); BG METHEMOGLOBIN 0.2 % (0.0-1.5); BG OXYGEN SATURATION 94.4 % (92.0-98.5); BG OXYHEMOGLOBIN 93.9 % (94.0-97.0); BG PCO2 29.3 mmHg (35.0-45.0); BG PH 7.302 (7.350-7.450); BG PO2 78.6 mmHg (75.0-100.0); BG SAMPLE SITE RIGHT RADIAL; BG TOTAL HEMOGLOBIN 13.6 g/dL (12.0-18.0); BG VENT MODE VENT - AC/VC
[2022-06-19] MEDS ORDERED: KCL 20MEQ/100ML PREMIX 100 ML IV ONE (07:45)
[2022-06-19 08:34] LABS: INR 1.2; PARTIAL THROMBOPLASTIN TIME 29.3 sec (23.4-31.0); PROTHROMBIN TIME 12.3 sec (9.6-11.0)
[2022-06-19] MEDS: ACYCLOVIR INJ 500 MG in DEXT 5% WATER 100 ML IV SCH (08:44)
[2022-06-19] MEDS: METRONIDAZOLE 500 MG PREMIX 100 ML IV SCH ×2 (08:44→21:36)
[2022-06-19] MEDS: FAMOTIDINE 20MG/2ML VIAL IV SCH (08:45)
[2022-06-19] MEDS: FOLIC ACID 1MG TABLET PO SCH (08:45)
[2022-06-19] MEDS: CITRIC ACID/SODIUM CITRATE SOLN 30ML UDC PO SCH ×3 (08:45→17:00)
[2022-06-19 09:08] LABS: PHOSPHORUS 5.4 mg/dL (2.5-4.9)
[2022-06-19 09:48] LABS: HEMATOCRIT. 38.5 % (42.0-52.0); HEMOGLOBIN. 12.5 g/dL (14.0-18.0); MEAN CORPUSCULAR HEMOGLOBIN 27.5 pg (28.0-32.0); MEAN CORPUSCULAR VOLUME 84.6 fL (80.0-94.0); MEAN PLATELET VOLUME 8.3 fl (7.4-10.4); RED BLOOD CELL COUNT 4.55 mill/uL (4.7-6.1)
[2022-06-19 09:50] LABS: PLATELET 25 x1000/uL (130-400)
[2022-06-19 10:06] LABS: PLATELET ESTIMATE MARKEDLY DECREASED
[2022-06-19] MEDS ORDERED: CALCIUM GLUCONATE 1GM PREMIX 50 ML IV NR ×3 (10:30→23:15)
[2022-06-19 10:31] LABS: PLATELET ESTIMATE MARKEDLY DECREASED
[2022-06-19] MEDS ORDERED: CALCIUM GLUCONATE 1GM PREMIX 50 ML IV SCH (11:00)
[2022-06-19 12:22] LABS: HEMATOCRIT. 36.5 % (42.0-52.0); HEMOGLOBIN. 12.1 g/dL (14.0-18.0); MEAN CORPUSCULAR HEMOGLOBIN 27.9 pg (28.0-32.0); MEAN CORPUSCULAR VOLUME 84.3 fL (80.0-94.0); MEAN PLATELET VOLUME 9.2 fl (7.4-10.4); RED BLOOD CELL COUNT 4.33 mill/uL (4.7-6.1)
[2022-06-19 12:25] LABS: PLATELET 25 x1000/uL (130-400)
[2022-06-19 12:41] LABS: INR 1.1; PROTHROMBIN TIME 12.2 sec (9.6-11.0)
[2022-06-19] MEDS: MIDAZOLAM HCL 100 MG in SODIUM CHLORIDE 0.9% 100 ML IV PRN (12:46)
[2022-06-19] MEDS: FENTANYL 2500MCG/250ML PMX 250 ML IV PRN (12:47)
[2022-06-19 13:08] LABS: PLATELET ESTIMATE MARKEDLY DECREASED
[2022-06-19 13:11] LABS: ANTI-NUCLEAR ANTIBODIES DIRECT Negative (Negative)
[2022-06-19] MEDS: CEFEPIME 2,000 MG in DEXT 5% WATER 100 ML IV SCH (16:17)
[2022-06-19 16:32] LABS: HEMATOCRIT. 35.7 % (42.0-52.0); HEMOGLOBIN. 11.8 g/dL (14.0-18.0); MEAN CORPUSCULAR HEMOGLOBIN 27.7 pg (28.0-32.0); MEAN CORPUSCULAR VOLUME 83.4 fL (80.0-94.0); MEAN PLATELET VOLUME 10.1 fl (7.4-10.4); RED BLOOD CELL COUNT 4.28 mill/uL (4.7-6.1); RED CELL DISTRIBUTION WIDTH 14.9 % (11.6-14.6)
[2022-06-19 16:42] LABS: INR 1.2; PARTIAL THROMBOPLASTIN TIME 29.2 sec (23.4-31.0); PROTHROMBIN TIME 12.3 sec (9.6-11.0)
[2022-06-19 16:43] LABS: PLATELET 25 x1000/uL (130-400)
[2022-06-19 17:14] LABS: PLATELET ESTIMATE MARKEDLY DECREASED
[2022-06-19] MEDS: PANTOPRAZOLE SODIUM 40 MG/VIAL IV SCH (21:37)
[2022-06-19 21:39] LABS: BG BASE EXCESS -8.7 mmol/L (-2.0-2.0); BG CARBOXYHEMOGLOBIN 0.3 % (0.5-1.5); BG DEOXYHEMOGLOBIN 4.9 % (0.0-5.0); BG FRACTION INSPIRED OXYGEN 41; BG HCO3 ACT 16.2 mmol/L (22.0-26.0); BG METHEMOGLOBIN 0.4 % (0.0-1.5); BG OXYGEN SATURATION 95.1 % (92.0-98.5); BG OXYHEMOGLOBIN 94.4 % (94.0-97.0); BG PCO2 31.5 mmHg (35.0-45.0); BG PH 7.328 (7.350-7.450); BG PO2 79.4 mmHg (75.0-100.0); BG SAMPLE SITE RIGHT RADIAL; BG TOTAL HEMOGLOBIN 12.4 g/dL (12.0-18.0); BG VENT MODE VENT - AC
[2022-06-19] MEDS ORDERED: SODIUM BICARBONATE 8.4% 1 MEQ/ML 50ML SYR IV NR (22:30)
[2022-06-19 22:33] LABS: HEMATOCRIT. 34.3 % (42.0-52.0); HEMOGLOBIN. 11.3 g/dL (14.0-18.0); MEAN CORPUSCULAR HEMOGLOBIN 27.5 pg (28.0-32.0); MEAN CORPUSCULAR VOLUME 83.6 fL (80.0-94.0); MEAN PLATELET VOLUME 10.1 fl (7.4-10.4); RED CELL DISTRIBUTION WIDTH 14.7 % (11.6-14.6)
[2022-06-19 22:40] LABS: INR 1.2; PARTIAL THROMBOPLASTIN TIME 28.8 sec (23.4-31.0); PROTHROMBIN TIME 12.3 sec (9.6-11.0)
[2022-06-19 22:42] LABS: PLATELET 25 x1000/uL (130-400)
[2022-06-19 22:48] LABS: CREATINE KINASE MB FRACTION 78.7 ng/mL (0.5-3.6); PHOSPHORUS 4.6 mg/dL (2.5-4.9)
[2022-06-19 23:00] LABS: CREATINE KINASE 1784 IU/L (39-308)
[2022-06-19 23:22] LABS: PLATELET ESTIMATE MARKEDLY DECREASED
[2022-06-20] VITALS (95 sets, daily range): BP systolic 98–121; BP diastolic 46–70
[2022-06-20] MEDS: DEXT 5%/LACTATED RINGERS 1,000 ML IV SCH ×3 (00:52→16:08)
[2022-06-20] MEDS: BLOOD SUGAR DIAGNOSTIC STRIP TEST SCH ×17 (01:00→17:44)
[2022-06-20] MEDS: FENTANYL 2500MCG/250ML PMX 250 ML IV PRN ×3 (02:01→21:59)
[2022-06-20] MEDS: LORAZEPAM 2MG/ML CPJ IV SCH ×5 (04:00→21:32)
[2022-06-20 04:25] LABS: HEMATOCRIT. 33.2 % (42.0-52.0); HEMOGLOBIN. 10.8 g/dL (14.0-18.0); MEAN CORPUSCULAR HEMOGLOBIN 27.3 pg (28.0-32.0); MEAN CORPUSCULAR VOLUME 83.8 fL (80.0-94.0); MEAN PLATELET VOLUME 10.3 fl (7.4-10.4); RED BLOOD CELL COUNT 3.96 mill/uL (4.7-6.1); RED CELL DISTRIBUTION WIDTH 14.7 % (11.6-14.6)
[2022-06-20 04:33] LABS: CHLORIDE 103 mEq/L (98-107)
[2022-06-20] MEDS: MIDAZOLAM HCL 100 MG in SODIUM CHLORIDE 0.9% 100 ML IV PRN ×2 (04:38→10:00)
[2022-06-20 04:46] LABS: PHOSPHORUS 4.5 mg/dL (2.5-4.9)
[2022-06-20 04:51] LABS: INR 1.1; PARTIAL THROMBOPLASTIN TIME 28.7 sec (23.4-31.0); PROTHROMBIN TIME 12.2 sec (9.6-11.0)
[2022-06-20 04:59] LABS: PLATELET 24 x1000/uL (130-400)
[2022-06-20] MEDS: DOXYCYCLINE 100 MG in DEXT 5% WATER 100 ML IV SCH ×2 (05:08→17:47)
[2022-06-20] MEDS: METHYLPREDNISOLONE SOD SUCC 40 MG/ML VIAL IV SCH ×3 (05:08→21:33)
[2022-06-20] MEDS: MIDODRINE HCL 5MG TABLET PO SCH ×3 (05:09→22:05)
[2022-06-20 05:18] LABS: PLATELET ESTIMATE DECREASED
[2022-06-20] MEDS ORDERED: CALCIUM GLUCONATE 1GM PREMIX 50 ML IV NR ×2 (08:00→18:00)
[2022-06-20] MEDS: PANTOPRAZOLE SODIUM 40 MG/VIAL IV SCH ×2 (08:33→16:07)
[2022-06-20] MEDS: FOLIC ACID 1MG TABLET PO SCH (08:33)
[2022-06-20] MEDS: ACYCLOVIR INJ 500 MG in DEXT 5% WATER 100 ML IV SCH (08:34)
[2022-06-20] MEDS: METRONIDAZOLE 500 MG PREMIX 100 ML IV SCH ×2 (08:34→21:33)
[2022-06-20 08:35] LABS: BG BASE EXCESS -8.4 mmol/L (-2.0-2.0); BG CARBOXYHEMOGLOBIN 0.3 % (0.5-1.5); BG FRACTION INSPIRED OXYGEN 41; BG HCO3 ACT 15.7 mmol/L (22.0-26.0); BG METHEMOGLOBIN 0.4 % (0.0-1.5); BG OXYHEMOGLOBIN 95.3 % (94.0-97.0); BG PCO2 28.1 mmHg (35.0-45.0); BG PH 7.366 (7.350-7.450); BG PO2 88.8 mmHg (75.0-100.0); BG SAMPLE SITE RIGHT RADIAL; BG TOTAL HEMOGLOBIN 10.9 g/dL (12.0-18.0); BG VENT MODE VENT - AC
[2022-06-20] MEDS: INSULIN REGULAR 100U/100ML PMX 100 ML IV PRN (08:52)
[2022-06-20] MEDS: CITRIC ACID/SODIUM CITRATE SOLN 30ML UDC PO SCH ×3 (09:00→16:07)
[2022-06-20 09:07] LABS: ABSOLUTE BASOPHILS 0.3 x10E3/uL (0.0-0.2); ABSOLUTE EOSINOPHILS 1.8 x10E3/uL (0.0-0.4); ABSOLUTE LYMPHOCYTES 2.7 x10E3/uL (0.7-3.1); ABSOLUTE MONOCYTES 1.2 x10E3/uL (0.1-0.9); ABSOLUTE NEUTROPHILS 22.1 x10E3/uL (1.4-7.0); BASOPHILS 1 % (Not Estab.); HEMATOCRIT 38.6 % (37.5-51.0); HEMATOLOGY COMMENT Note: (.); HEMOGLOBIN 13.2 g/dL (13.0-17.7); LYMPHOCYTES 9 % (Not Estab.); MEAN CORPUSCULAR HEMOGLOBIN 28.5 pg (26.6-33.0); MEAN CORPUSCULAR HGB CONC. 34.2 g/dL (31.5-35.7); MEAN CORPUSCULAR VOLUME 83 fL (79-97); MONOCYTES 4 % (Not Estab.); NEUTROPHILS 75 % (Not Estab.); PLATELETS 24 x10E3/uL (150-450); RBC 4.63 x10E6/uL (4.14-5.80); RED CELL DISTRIBUTION WIDTH 13.6 % (11.6-15.4); WBC 29.5 x10E3/uL (3.4-10.8)
[2022-06-20 10:33] LABS: HEMATOCRIT. 31.6 % (42.0-52.0); HEMOGLOBIN. 10.5 g/dL (14.0-18.0); MEAN CORPUSCULAR HEMOGLOBIN 27.6 pg (28.0-32.0); MEAN CORPUSCULAR VOLUME 83.4 fL (80.0-94.0); MEAN PLATELET VOLUME 9.5 fl (7.4-10.4); RED BLOOD CELL COUNT 3.79 mill/uL (4.7-6.1); RED CELL DISTRIBUTION WIDTH 14.7 % (11.6-14.6)
[2022-06-20 10:34] LABS: CHLORIDE 105 mEq/L (98-107)
[2022-06-20 10:39] LABS: PHOSPHORUS 4.4 mg/dL (2.5-4.9)
[2022-06-20 11:11] LABS: INR 1.1; PARTIAL THROMBOPLASTIN TIME 28.2 sec (23.4-31.0); PROTHROMBIN TIME 12.1 sec (9.6-11.0)
[2022-06-20 11:50] LABS: PLATELET 27 x1000/uL (130-400); PLATELET ESTIMATE MARKEDLY DECREASED
[2022-06-20 13:07] LABS: % CD 3 POS. LYMPHOCYTES 72.2 % (57.5-86.2); % CD 4 POS. LYMPHOCYTES 42.2 % (30.8-58.5); % CD 8 POS. LYMPH 31.9 % (12.0-35.5); ABSOLUTE CD 3 1949 /uL (622-2402); ABSOLUTE CD 4 HELPER 1139 /uL (359-1519); ABSOLUTE CD 8 SUPPRESSOR 861 /uL (109-897); CD4/CD8 RATIO 1.32 (0.92-3.72)
[2022-06-20] MEDS ORDERED: IPRATROPIUM/ALBUTEROL 0.5-3(2.5)MG/3ML NEB ONE (15:13)
[2022-06-20] MEDS ORDERED: DEXTROSE 50% WATER 50ML SYRINGE IV PRN (15:45)
[2022-06-20] MEDS: CEFEPIME 2,000 MG in DEXT 5% WATER 100 ML IV SCH (16:08)
[2022-06-20 16:44] LABS: HEMATOCRIT 29.7 % (42.0-52.0); HEMOGLOBIN 10.2 g/dL (14.0-18.0); MEAN CORPUSCULAR HEMOGLOBIN 28.6 pg (28.0-32.0); MEAN CORPUSCULAR VOLUME 83.1 fL (80.0-94.0); RED BLOOD CELL COUNT 3.58 mill/uL (4.7-6.1); RED CELL DISTRIBUTION WIDTH 14.7 % (11.6-14.6)
[2022-06-20 16:54] LABS: PLATELET 32 x1000/uL (130-400)
[2022-06-20 16:55] LABS: CHLORIDE 105 mEq/L (98-107); INR 1.1; PARTIAL THROMBOPLASTIN TIME 28.3 sec (23.4-31.0)
[2022-06-20 16:59] LABS: PHOSPHORUS 4.7 mg/dL (2.5-4.9)
[2022-06-20] MEDS ORDERED: INSULIN LISPRO 100 UNITS/ML SUBCUT SCH (18:20)
[2022-06-20 19:06] LABS: ANTI-MYELOPEROXIDASE AB < 0.2 units (0.0-0.9); ANTI-PROTEINASE 3 ABS < 0.2 units (0.0-0.9)
[2022-06-20 21:42] LABS: BG BASE EXCESS -10.1 mmol/L (-2.0-2.0); BG CARBOXYHEMOGLOBIN 0.2 % (0.5-1.5); BG DEOXYHEMOGLOBIN 5.2 % (0.0-5.0); BG FRACTION INSPIRED OXYGEN 41; BG HCO3 ACT 14.6 mmol/L (22.0-26.0); BG METHEMOGLOBIN 0.3 % (0.0-1.5); BG OXYGEN SATURATION 94.8 % (92.0-98.5); BG OXYHEMOGLOBIN 94.3 % (94.0-97.0); BG PCO2 28.8 mmHg (35.0-45.0); BG PH 7.324 (7.350-7.450); BG PO2 79.8 mmHg (75.0-100.0); BG SAMPLE SITE RIGHT RADIAL; BG TOTAL HEMOGLOBIN 10.8 g/dL (12.0-18.0); BG VENT MODE VENT - AC
[2022-06-20 22:53] LABS: HEMATOCRIT 29.4 % (42.0-52.0); HEMOGLOBIN 9.8 g/dL (14.0-18.0); MEAN CORPUSCULAR HEMOGLOBIN 27.9 pg (28.0-32.0); MEAN CORPUSCULAR VOLUME 83.7 fL (80.0-94.0); RED BLOOD CELL COUNT 3.51 mill/uL (4.7-6.1); RED CELL DISTRIBUTION WIDTH 14.8 % (11.6-14.6)
[2022-06-20 22:57] LABS: PLATELET 40 x1000/uL (130-400)
[2022-06-20 23:06] LABS: CHLORIDE 104 mEq/L (98-107)
[2022-06-20 23:13] LABS: PHOSPHORUS 5.2 mg/dL (2.5-4.9)
[2022-06-20 23:20] LABS: INR 1.1; PARTIAL THROMBOPLASTIN TIME 28.2 sec (23.4-31.0)
[2022-06-21] VITALS (84 sets, daily range): BP systolic 72–149; BP diastolic 47–84
[2022-06-21] MEDS ORDERED: CALCIUM CHLORIDE 1,000 MG in DEXT 5% WATER 90 ML IV NR (01:00)
[2022-06-21] MEDS: LORAZEPAM 2MG/ML CPJ IV SCH ×6 (01:24→20:24)
[2022-06-21] MEDS: DEXT 5%/LACTATED RINGERS 1,000 ML IV SCH ×3 (01:25→18:15)
[2022-06-21] MEDS: INSULIN LISPRO 100 UNITS/ML SUBCUT SCH ×4 (01:48→18:15)
[2022-06-21] MEDS: MIDAZOLAM HCL 100 MG in SODIUM CHLORIDE 0.9% 100 ML IV PRN (03:29)
[2022-06-21] MEDS: METHYLPREDNISOLONE SOD SUCC 40 MG/ML VIAL IV SCH ×3 (05:41→20:24)
[2022-06-21] MEDS: DOXYCYCLINE 100 MG in DEXT 5% WATER 100 ML IV SCH (05:42)
[2022-06-21] MEDS: BLOOD SUGAR DIAGNOSTIC STRIP TEST SCH ×4 (05:43→17:50)
[2022-06-21] MEDS: MIDODRINE HCL 5MG TABLET PO SCH ×3 (05:43→22:00)
[2022-06-21 05:58] LABS: HEMATOCRIT. 29.5 % (42.0-52.0); HEMOGLOBIN. 9.7 g/dL (14.0-18.0); MEAN CORPUSCULAR HEMOGLOBIN 27.6 pg (28.0-32.0); MEAN PLATELET VOLUME 10.7 fl (7.4-10.4); RED BLOOD CELL COUNT 3.52 mill/uL (4.7-6.1); RED CELL DISTRIBUTION WIDTH 15.2 % (11.6-14.6)
[2022-06-21 06:10] LABS: INR 1.1; PROTHROMBIN TIME 11.5 sec (9.6-11.0)
[2022-06-21 06:11] LABS: CHLORIDE 103 mEq/L (98-107)
[2022-06-21 06:19] LABS: PHOSPHORUS 5.9 mg/dL (2.5-4.9)
[2022-06-21 07:32] LABS: PLATELET ESTIMATE MARKEDLY DECREASED
[2022-06-21 07:33] LABS: PLATELET 41 x1000/uL (130-400)
[2022-06-21] MEDS: FOLIC ACID 1MG TABLET PO SCH (08:42)
[2022-06-21] MEDS: CITRIC ACID/SODIUM CITRATE SOLN 30ML UDC PO SCH ×3 (08:42→16:30)
[2022-06-21] MEDS: ACYCLOVIR INJ 500 MG in DEXT 5% WATER 100 ML IV SCH (08:42)
[2022-06-21] MEDS: METRONIDAZOLE 500 MG PREMIX 100 ML IV SCH (08:42)
[2022-06-21] MEDS: PANTOPRAZOLE SODIUM 40 MG/VIAL IV SCH ×2 (08:43→16:30)
[2022-06-21 10:32] LABS: *HSV 2 DNA PCR NEGATIVE
[2022-06-21 10:33] LABS: *HSV 1 DNA PCR NEGATIVE
[2022-06-21] MEDS ORDERED: AMIODARONE HCL 150 MG in DEXT 5% WATER 100 ML IV ONE (11:15)
[2022-06-21] MEDS ORDERED: CALCIUM GLUCONATE 1GM PREMIX 50 ML IV NR (12:00)
[2022-06-21 13:12] LABS: ATYPICAL P-ANCA <1:20 titer (Neg:<1:20); CYTOPLASMIC C-ANCA <1:20 titer (Neg:<1:20); PERINUCLEAR P-ANCA <1:20 titer (Neg:<1:20)
[2022-06-21 13:12] LABS: WEST NILE VIRUS CSF IGG Negative (Negative); WEST NILE VIRUS CSF IGM Negative (Negative)
[2022-06-21 13:34] LABS: BG BASE EXCESS -4.5 mmol/L (-2.0-2.0); BG CARBOXYHEMOGLOBIN 0.3 % (0.5-1.5); BG DEOXYHEMOGLOBIN 2.3 % (0.0-5.0); BG FRACTION INSPIRED OXYGEN 40; BG HCO3 ACT 18.4 mmol/L (22.0-26.0); BG METHEMOGLOBIN 0.4 % (0.0-1.5); BG OXYGEN SATURATION 97.7 % (92.0-98.5); BG PCO2 26.9 mmHg (35.0-45.0); BG PH 7.452 (7.350-7.450); BG PO2 110.3 mmHg (75.0-100.0); BG SAMPLE SITE LEFT RADIAL; BG TOTAL HEMOGLOBIN 10.1 g/dL (12.0-18.0); BG VENT MODE VENT - AC
[2022-06-21 16:07] LABS: CHLORIDE 99 mEq/L (98-107)
[2022-06-21] MEDS ORDERED: LACTULOSE 20G/30ML UDC PO SCH (21:00)
== END 2022-06-22 | disposition short-term general hospital (02) | DRG 870 ==
LOC: ER 00:19 → 5EST 05:59 → EDBEDREQ 06:10 → EDBEDREQTM 06:10 → CVICU 14:51
PROVIDERS: ADMIT Internal Medicine; ATTEND Internal Medicine
PROC: 05HY33Z Insertion of Infusion Device into Upper Vein, Percutaneous Approach (ICD-10-PCS; 2022-06-16)
PROC: B54MZZA Ultrasonography of Right Upper Extremity Veins, Guidance (ICD-10-PCS; 2022-06-16)
PROC: 5A1955Z Respiratory Ventilation, Greater than 96 Consecutive Hours (ICD-10-PCS; principal; 2022-06-17)
PROC: 0BH17EZ Insertion of Endotracheal Airway into Trachea, Via Natural or Artificial Opening (ICD-10-PCS; 2022-06-17)
PROC: 4A00X4Z Measurement of Central Nervous Electrical Activity, External Approach (ICD-10-PCS; 2022-06-17)
PROC: 5A12012 Performance of Cardiac Output, Single, Manual (ICD-10-PCS; 2022-06-17)
PROC: 009U3ZZ Drainage of Spinal Canal, Percutaneous Approach (ICD-10-PCS; 2022-06-17)
PROC: B01BZZZ Fluoroscopy of Spinal Cord (ICD-10-PCS; 2022-06-17)
PROC: 02H633Z Insertion of Infusion Device into Right Atrium, Percutaneous Approach (ICD-10-PCS; 2022-06-17)
PROC: B518ZZA Fluoroscopy of Superior Vena Cava, Guidance (ICD-10-PCS; 2022-06-17)
PROC: 30233N1 Transfusion of Nonautologous Red Blood Cells into Peripheral Vein, Percutaneous Approach (ICD-10-PCS; 2022-06-17)
PROC: 5A1D70Z Performance of Urinary Filtration, Intermittent, Less than 6 Hours Per Day (ICD-10-PCS; 2022-06-21)
DX: A41.9 Sepsis, unspecified organism (principal); E43 Unspecified severe protein-calorie malnutrition; N17.0 Acute kidney failure with tubular necrosis; G92.8 Other toxic encephalopathy; J69.0 Pneumonitis due to inhalation of food and vomit; J96.01 Acute respiratory failure with hypoxia; G04.90 Encephalitis and encephalomyelitis, unspecified; I21.A1 Myocardial infarction type 2; I46.9 Cardiac arrest, cause unspecified; K72.00 Acute and subacute hepatic failure without coma; R65.21 Severe sepsis with septic shock; D68.9 Coagulation defect, unspecified; E87.1 Hypo-osmolality and hyponatremia; E87.20 Acidosis, unspecified; M62.82 Rhabdomyolysis; F10.131 Alcohol abuse with withdrawal delirium; D68.4 Acquired coagulation factor deficiency; D69.3 Immune thrombocytopenic purpura; R74.01 Elevation of levels of liver transaminase levels; E87.6 Hypokalemia; Y90.9 Presence of alcohol in blood, level not specified; E80.6 Other disorders of bilirubin metabolism; K52.9 Noninfective gastroenteritis and colitis, unspecified; E66.9 Obesity, unspecified; R80.9 Proteinuria, unspecified; Z20.822 Contact with and (suspected) exposure to COVID-19; I48.0 Paroxysmal atrial fibrillation; R59.0 Localized enlarged lymph nodes; D64.9 Anemia, unspecified; E83.51 Hypocalcemia; I49.3 Ventricular premature depolarization; K29.60 Other gastritis without bleeding; K76.0 Fatty (change of) liver, not elsewhere classified; T38.0X5A Adverse effect of glucocorticoids and synthetic analogues, initial encounter; Z68.37 Body mass index [BMI] 37.0-37.9, adult; Y92.89 Other specified places as the place of occurrence of the external cause; Z83.3 Family history of diabetes mellitus; Z99.2 Dependence on renal dialysis
CPT/HCPCS: 31500; 36415; 36556; 36573; 36600; 62328; 70551; 71045; 71250; 74176; 76770; 76937; 77001; 78580; 80048; 80053; 80061; 80076; 80202; 80305; 80320; 81003; 82140; 82150; 82330; 82375; 82533; 82542; 82550; 82553; 82607; 82728; 82746; 82784; 82787; 82805; 82945; 82962; 83036; 83520; 83605; 83615; 83735; 83916; 83935; 84100; 84145; 84157; 84300; 84439; 84443; 84478; 84484; 85025; 85027; 85044; 85362; 85379; 85384; 85651; 86022; 86038; 86160; 86256; 86359; 86360; 86592; 86617; 86635; 86645; 86705; 86709; 86788; 86789; 86803; 86850; 86900; 87070; 87116; 87252; 87340; 87389; 87426; 87529; 87804; 87899; 90935; 92950; 93005; 93306; 94002; 94003; 94640; 95816; 99291; C1725; C1752; C1760; C9113; C9803; J0133; J0456; J0610; J0692; J0696; J1644; J1650; J1720; J1815; J1953; J2060; J2175; J2250; J2370; J2543; J2704; J2920; J3010; J3370; J3411; J3430; J3475; J3480; J3490; J7030; J7042; J7050; J7060; J7070; J7121; P9034; A4315; G0480